=== PATIENT | male | born 1955 | race Caucasian/White ===

== ENCOUNTER → 2017-03-22 | Outpatient (CLI) | payer OTHER ==
--- NOTE | 2017-03-22 15:36 | PMGORTHO ---
Exam performed: Single AP standing view bilateral knees and lateral and sunrise view of the right knee. History: Right knee pain, no known injury. Date of service: 03/22/17. Comparison: None available Findings: There is mild narrowing of bilateral medial tibiofemoral joints. There is mild narrowing of the patellofemoral joint with osteophytic spurring. There is no acute fracture or dislocation. No soft tissue swelling or joint effusion seen. Impression: 1. Degenerative arthrosis involving bilateral medial tibiofemoral as well as the right patellofemoral joint. 2. No acute abnormality noted.
== END | disposition home or self-care (01) ==
LOC: PMGORTHO 13:52
PROVIDERS: ATTEND Orthopaedic Surgery Sports Medicine
DX: M17.11 Unilateral primary osteoarthritis, right knee (principal)
CPT/HCPCS: 73560

== ENCOUNTER → 2017-12-27 | Outpatient (CLI) | payer BC | END | disposition home or self-care (01) | LOC: RAD 09:15 | DX: S83.242A Other tear of medial meniscus, current injury, left knee, initial encounter (principal); M17.12 Unilateral primary osteoarthritis, left knee; M25.462 Effusion, left knee; X58.XXXA Exposure to other specified factors, initial encounter; Y93.89 Activity, other specified; Y92.89 Other specified places as the place of occurrence of the external cause; Y99.8 Other external cause status | CPT/HCPCS: 73721; 77073 ==

== ENCOUNTER → 2018-01-09 | Outpatient (CLI) | payer BC ==
[2018-01-09 10:19] LABS: ALBUMIN 4.1 g/dL (3.4-5.0); ALBUMIN/GLOBULIN RATIO 1.1 (1.0-1.7); ALK PHOS 73 U/L (46-116); ALT (SGPT) 43 U/L (16-63); ANION GAP 8 (6-14); AST (SGOT) 24 U/L (15-37); BLOOD UREA NITROGEN 13 mg/dL (8-26); BUN/CREATININE RATIO 22 (6-20); CALCIUM 9.1 mg/dL (8.5-10.1); CARBON DIOXIDE 29 mmol/L (21-32); CHLORIDE 103 mmol/L (98-107); CHOLESTEROL 183 mg/dL (0-200); CREATININE 0.6 mg/dL (0.7-1.3); GFR 135.6; GLUCOSE 99 mg/dL (70-99); HDLC 57 mg/dL (40-60); LDLC 94 mg/dL (0-100); NON-HDL CHOLESTEROL 126 mg/dL (0-129); POTASSIUM 3.9 mmol/L (3.5-5.1); SODIUM 140 mmol/L (136-145); TOTAL BILIRUBIN 0.6 mg/dL (0.2-1.0); TOTAL PROTEIN 7.7 g/dL (6.4-8.2); TRIGLYCERIDES 162 mg/dL (0-150); VLDLC 32 mg/dL (0-40)
[2018-01-09 10:21] LABS: CHOLESTEROL/HDL RATIO 3.2
== END | disposition home or self-care (01) ==
LOC: LAB 13:46
DX: Z01.818 Encounter for other preprocedural examination (principal); I10 Essential (primary) hypertension; R09.89 Other specified symptoms and signs involving the circulatory and respiratory systems
CPT/HCPCS: 36415; 80053; 80061

== ENCOUNTER → 2018-01-09 | Outpatient (CLI) | payer BC ==
[2018-01-09 09:38] LABS: ADD MAN DIFF? NO
[2018-01-09 10:06] LABS: BASO % 1 % (0-3); EOS # 0.2 x10^3/uL (0.0-0.7); EOS % 4 % (0-3); HEMATOCRIT 43.5 % (39.0-53.0); HEMOGLOBIN 15.1 g/dL (13.0-17.5); LYMPH # 1.7 x10^3/uL (1.0-4.8); LYMPH % 29 % (24-48); MEAN CORPUSCULAR HEMOGLOBIN 32 pg (25-35); MEAN CORPUSCULAR HGB CONC 35 g/dL (31-37); MEAN CORPUSCULAR VOLUME 91 fL (79-100); MONO # 0.7 x10^3/uL (0.0-1.1); MONO % 11 % (0-9); NEUT # 3.4 x10^3uL (1.8-7.7); NEUT % 56 % (31-73); PLATELET COUNT 219 x10^3/uL (140-400); RED BLOOD COUNT 4.79 x10^6/uL (4.30-5.70); RED CELL DISTRIBUTION WIDTH 13.1 % (11.5-14.5)
[2018-01-09 10:19] LABS: INR 1.1 (0.8-1.1); PROTHROMBIN TIME PATIENT 13.5 SEC (11.7-14.0)
[2018-01-09 10:20] LABS: PARTIAL THROMBOPLASTIN TIME 29 SEC (24-38)
[2018-01-09 11:31] LABS: BILIRUBIN,URINE NEGATIVE (NEG); CLARITY,URINE CLEAR; COLOR,URINE YELLOW; GLUCOSE,URINE NEGATIVE (NEG); NITRITE,URINE NEGATIVE (NEG); PROTEIN,URINE NEGATIVE (NEG-TRACE); UROBILINOGEN,URINE 0.2 mg/dL (0.2 mg/dL)
[2018-01-09 12:04] LABS: BACTERIA,URINE 0 /HPF (0-FEW); SQUAMOUS EPITHELIAL CELL,UR FEW /LPF; WBC,URINE 0 /HPF (0-4)
[2018-01-09 12:07] LABS: SEDIMENTATION RATE 9 (0-15)
[2018-01-09 23:13] LABS: MRSA BY PCR Negative (Negative)
== END | disposition home or self-care (01) ==
LOC: SURGPAT 13:44
DX: Z01.818 Encounter for other preprocedural examination (principal); I10 Essential (primary) hypertension
CPT/HCPCS: 36415; 71046; 81001; 85025; 85610; 85651; 85730; 87641; 93005

== ENCOUNTER → 2019-09-20 | Outpatient (CLI) | payer MEDICARE ==
[2018-01-24 08:20] VITALS: BP 138/67
[~2019-09-20] MED LIST: BISO1TAB45 PO; INDO75CA3 PO; MELO15TA6 PO; MULT-697 PO; WARF-78 PO
--- NOTE | 2019-09-20 18:33 | KCIC ---
CHEST PA LATERAL History: Dyspnea on exertion Comparison: None. Findings: Frontal and lateral views of the chest were obtained. The cardiomediastinal silhouette is normal. Pulmonary vasculature is normal. The lungs are clear. No pleural effusion or pneumothorax is seen. There is no acute bone abnormality. IMPRESSION: No acute cardiopulmonary process. Electronically signed by: Quincy Kramer MD (09/20/2019 6:29 PM) [id number]
== END | disposition home or self-care (01) ==
LOC: KCIC 12:22
PROVIDERS: ATTEND Family Medicine
DX: R06.09 Other forms of dyspnea (principal)
CPT/HCPCS: 71046

== ENCOUNTER → 2020-01-07 | Outpatient (CLI) | payer MEDICARE ==
[2018-01-24 08:20] VITALS: BP 138/67
[~2020-01-07] MED LIST changes: +TAMS0.4C97 PO; -WARF-78 PO; +WARF5TAB2 PO
== END | disposition home or self-care (01) ==
LOC: LAB 13:04
PROVIDERS: ATTEND Internal Medicine Gastroenterology
DX: Z11.59 Encounter for screening for other viral diseases (principal)
CPT/HCPCS: U0003-CS

== ENCOUNTER → 2020-01-11 | Day surgery (SDC) | payer MEDICARE ==
[~2020-01-11] MED LIST changes: +HYDROmorphone 2 MG/ML VIAL IV PRN; +IV RINGERS,LACTATED 1000ML 1,000 ML IV SCH; +MORPHINE SULFATE 2 MG/ML VIAL. IV PRN; +ONDANSETRON PF 4 MG/2 ML VIAL. IV PRN; +PROCHLORPERAZINE 10 MG/2 ML VIAL. IV PRN; +PROPOFOL 10 MG/ML (20ML) VIAL. IV ONE; +fentaNYL PF VIAL 100 MCG/2 ML VIAL IV PRN
[2020-01-11 09:10] VITALS: BP 171/88
--- NOTE | 2020-01-11 11:28 | HP ---
ADMIT DATE: 01/11/2020 REFERRING PHYSICIAN: Gopal Friedman MD REASON: Colorectal screening and heartburn. HISTORY OF PRESENT ILLNESS: A 64-year-old male whose past medical history is significant for hypertension, BPH, is seen for screening colon exam. Bowel habits are regular without diarrhea or constipation. There has been no melena or hematochezia. Weight and appetite have been stable. He also notes a globus sensation, which does not clear with swallowing. Risk factors for reflux are positive for caffeine and negative for alcohol and nicotine. No chucho dysphagia was encountered with continued issues, requests additional evaluation. PAST MEDICAL HISTORY: Hypertension, globus sensation. ALLERGIES: None. MEDICATIONS: Hydrochlorothiazide, ____, folic acid, Flomax. PAST SURGICAL HISTORY: Significant for joint replacement. REVIEW OF SYSTEMS: Per records. PHYSICAL EXAMINATION: GENERAL: Reveals a well-nourished, well-developed male who is alert, cooperative, in no acute distress. VITAL SIGNS: Temperature is 97.8, pulse 65, respirations 20. LUNGS: Clear. CARDIOVASCULAR: Reveals an S1, S2 without S3, S4 or appreciable murmur. ABDOMEN: With a soft abdomen, normal bowel sounds, without appreciable hepatosplenomegaly. EXTREMITIES: Reveals no cyanosis, clubbing or edema. IMPRESSION: 1. Colorectal screening is warranted at this time. Risks and benefits of procedure including risk of hemorrhage and perforation during the operation were discussed. The patient is willing to proceed. 2. Globus sensation with heartburn. Differential includes Schatzki ring, achalasia, malignancy, Duffy's; therefore, recommend upper endoscopy. Risks and benefits discussed. The patient is willing to proceed. LUCA BARAJAS MD DR: EDNA/wil JOB#: [id number] / [id number]
--- NOTE | 2020-01-14 16:06 | PATHOLOGY ---
[facility] Accession Number: [id number] . 01 Material submitted: . sigmoid colon - SIGMOID POLYP . 01 Clinical history: . Screening . 02 Diagnosis: Colon biopsies, sigmoid polyp: - Sessile serrated polyp/adenoma. (JPM:yan; 01/14/2020) QMS 01/14/2020 0906 Local . 02 Comment: There is no high grade dysplasia or evidence of malignancy. (JPM:yan; 01/14/2020) . 02 Electronically signed: . Patrick Chirinos MD, Pathologist NPI- [id number] . 01 Gross description: . The specimen is received in formalin, labeled "Brese, Manny, sigmoid polyp" and consists of 3 fragments of pink-aldana tissue measuring between 0.3 x 0.2 cm and 0.4 x 0.3 cm which are entirely submitted in A1. (SDY; 01/11/2020) SYU/SYU 01/11/2020 1609 Local . 02 Pathologist provided ICD-10: D12.5 . 02 CPT . 322804 Specimen Comment: A courtesy copy of this report has been sent to [phone], [phone] Specimen Comment: [id number] Specimen Comment: Report sent to / DR CLAROS Performed at: 01 [facility] [address], [place] [id number] MD Roe Asher MD Phone: [phone] Performed at: 02 [facility] [address] [place], [place] [id number] MD Patrick Chirinos MD Phone: [phone]
== END ==
LOC: ENDOS 06:36
PROVIDERS: ATTEND Internal Medicine Gastroenterology
DX: Z12.11 Encounter for screening for malignant neoplasm of colon (principal); D12.5 Benign neoplasm of sigmoid colon; K22.2 Esophageal obstruction; K64.0 First degree hemorrhoids; K57.30 Diverticulosis of large intestine without perforation or abscess without bleeding; I10 Essential (primary) hypertension; K21.9 Gastro-esophageal reflux disease without esophagitis; E66.01 Morbid (severe) obesity due to excess calories; Z68.42 Body mass index [BMI] 45.0-49.9, adult; Z87.891 Personal history of nicotine dependence; Z87.39 Personal history of other diseases of the musculoskeletal system and connective tissue; Z96.652 Presence of left artificial knee joint
CPT/HCPCS: 43235; 43450; 45380; 88305; J2704